=== PATIENT | male | born 1945 | race Caucasian/White ===

== ENCOUNTER → 2018-07-20 | Outpatient (CLI) | payer OTHER | END | disposition home or self-care (01) | LOC: PCVCCLINIC 15:00 | PROVIDERS: ATTEND Internal Medicine Cardiovascular Disease | DX: R06.09 Other forms of dyspnea (principal); I10 Essential (primary) hypertension; E78.00 Pure hypercholesterolemia, unspecified; I73.9 Peripheral vascular disease, unspecified; R19.8 Other specified symptoms and signs involving the digestive system and abdomen; Z98.890 Other specified postprocedural states; E78.5 Hyperlipidemia, unspecified; Z87.891 Personal history of nicotine dependence; Z79.82 Long term (current) use of aspirin | CPT/HCPCS: 93005; G0463 ==

== ENCOUNTER → 2018-08-02 | Outpatient (CLI) | payer OTHER ==
[~2018-08-02] MED LIST: REGADENOSON 0.4 MG/5 ML DISP.SYRIN. IV ONE
--- NOTE | 2018-08-02 13:07 | PCVCIMAG ---
APPROVED REPORT Doppler Spectral Velocity Analysis PSV / EDVPSV / EDV ECA (R) 105 / 0 cm/sECA (L) 103 / 0 cm/s dICA (R) 82 / 20 cm/sdICA (L) 113 / 33 cm/s Raven (R) 95 / 20 cm/smICA (L) 90 / 19 cm/s pICA (R) 122 / 24 cm/spICA (L) 70 / 13 cm/s Bulb (R) 62 / 13 cm/sBulb (L) 87 / 11 cm/s dCCA (R) 73 / 13 cm/sdCCA (L) 81 / 14 cm/s mCCA (R) 77 / 12 cm/smCCA (L) 78 / 16 cm/s Vert (R) 72 / 11 cm/sVert (L) 38 / 10 cm/s ICA/CCA 1.67ICA/CCA 1.40 Findings The right carotid bulb has moderate calcified plaque. The right proximal internal carotid artery shows 40-50% stenosis. The right common carotid artery shows no significant stenosis. The right external carotid artery shows no significant stenosis. The left carotid bulb has minimal plaque. The left proximal internal carotid artery shows no significant stenosis, changes of endarterectomy. The left common carotid artery shows no significant stenosis. The left external carotid artery shows no significant stenosis. Conclusion 1. Right internal carotid artery stenosis (40-50%). 2. Left internal carotid artery plaquing. Changes of prior carotid endarterectomy 3. Antegrade vertebral flow
--- NOTE | 2018-08-02 13:27 | PCVCIMAG ---
EXAM: AORTOILIAC DUPLEX INDICATION: Peripheral arterial disease. Previous pelvic radiation for prostate cancer. FINDINGS: AORTA: Suprarenal aorta measures maximum diameter of 2.5 cm. There is not a fusiform infrarenal aortic aneurysm. The infrarenal aorta measures maximum diameter of 2.5 cm. No aortic stenosis. RIGHT COMMON ILIAC ARTERY: Maximum diameter is 1.2 cm. Mild/moderate stenosis mid vessel. RIGHT EXTERNAL ILIAC ARTERY: No significant stenosis. LEFT COMMON ILIAC ARTERY: Maximum diameter is 1.3 cm. 80% stenosis mid common iliac artery. LEFT EXTERNAL ILIAC ARTERY: No significant stenosis. IMPRESSION: No abdominal aortic aneurysm. Mild/moderate stenosis mid right common iliac artery. 80% stenosis mid left common iliac artery. LOC:OFFICE
--- NOTE | 2018-08-02 13:31 | PCVCIMAG ---
EXAM: BILATERAL LOWER EXTREMITY ARTERIAL DUPLEX INDICATION: Peripheral Arterial Disease. Leg pain. FINDINGS: Right Leg: Satisfactory arterial waveforms throughout the common/profunda/superficial femoral, popliteal, anterior tibial, peroneal, and posterior tibial arteries. No flow limiting stenosis seen. Left Leg: Mildly blunted arterial waveforms in the common femoral artery consistent with significant left iliac stenosis. Please see aortoiliac dictation from today. The superficial femoral and popliteal arteries are patent. Anterior tibial, peroneal, and posterior tibial arteries are patent. IMPRESSION: No flow limiting stenosis in the right lower extremity. No flow limiting stenosis in the left lower extremity. Mildly blunted arterial waveforms left common femoral artery consistent with high-grade left iliac stenosis. LOC:OFFICE
--- NOTE | 2018-08-06 12:50 | PCVCIMAG ---
APPROVED REPORT Study performed: 08/02/2018 11:59:47 EXAM: Comprehensive 2D, Doppler, and color-flow Echocardiogram Patient Location: Echo lab Room #: 2Status: routine BSA: 2.39 HR: 48 bpm Rhythm: Bradycardia Other Information Study Quality: Fair Risk Factors: Cardiac Risk Factors: HTN, Hyperlipidemia Indications Dyspnea Hypertension/HDD Hx carotid endarterectomy, PAD 2D Dimensions IVSd: 7.72 (7-11mm)LVOT Diam: 30.15 (18-24mm) LVDd: 41.75 mm PWd: 8.80 (7-11mm) LVDs: 27.37 (25-40mm) Left Atrium: 36.79 (27-40mm) Aortic Root: 28.25 mm LV Single Plane 4CH: 54.02 % LV Single Plane 2CH: 58.84 % Biplane EF: 56.8 % Volumes Left Atrial Volume (Systole) Single Plane 4CH: 48.44 mLSingle Plane 2CH: 38.87 mL Biplane LA Volume: 45.00 mLLA ESV Index: 19.00 mL/m2 Aortic Valve AoV Peak Silvio.: 1.58 m/s AO Peak Gr.: 9.95 mmHgLVOT Max P.34 mmHg LVOT Max V: 0.91 m/s JOSEPH Vmax: 4.13 cm2 Mitral Valve E/A Ratio: 1.5 MV Decel. Time: 277.07 ms MV E Max Silvio.: 0.79 m/s MV A Silvio.: 0.53 m/s IVRT: 79.58 ms TDI E/Lateral E': 7.90E/Medial E': 13.17 Medial E' Silvio.: 0.06 m/s Lateral E' Silvio.: 0.10 m/s Pulmonary Valve PV Peak Silvio.: 0.96 m/sPV Peak Gr.: 3.66 mmHg Pulmonary Vein P Vein S: 0.46 m/sP Vein A: 0.29 m/s P Vein D: 0.61 m/sP Vein A Dur.: 96.9 msec P Vein S/D Ratio: 0.75 Tricuspid Valve TR Peak Silvio.: 1.90 m/s TR Peak Gr.: 14.39 mmHg TV Vmax: 0.61 m/sPA Pressure: 21.00 mmHg Left Ventricle The left ventricle is normal size. There is normal LV segmental wall motion. There is normal left ventricular wall thickness. Left ventricular systolic function is normal. The left ventricular ejection fraction is within the normal range. LVEF is 55-60%. The left ventricular diastolic function is normal. Right Ventricle The right ventricle is normal size. The right ventricular systolic function is normal. Atria The left atrium size is normal. The right atrium size is normal. Aortic Valve Aortic valve is not well visualized. Aortic valve is probably trileaflet. No aortic regurgitation is present. There is no aortic valvular stenosis. Mitral Valve The mitral valve is normal in structure. There is no mitral valve regurgitation noted. No evidence of mitral valve stenosis. Tricuspid Valve The tricuspid valve is normal in structure. There is no tricuspid valve regurgitation noted. Pulmonic Valve The pulmonary valve is normal in structure. There is no pulmonic valvular regurgitation. Great Vessels The aortic root is normal in size. Ascending aorta is not well visualized. Aortic arch is normal in caliber. IVC is normal in size and collapses >50% with inspiration. Pericardium There is no pericardial effusion. There is no pleural effusion. <Conclusion> The left ventricle is normal size. LVEF is 55-60%. The right ventricle is normal size. The left atrium size is normal. Aortic valve is not well visualized. Aortic valve is probably trileaflet. There is no aortic valvular stenosis. There is no mitral valve regurgitation noted. There is no tricuspid valve regurgitation noted. The aortic root is normal in size. There is no pericardial effusion.
--- NOTE | 2018-08-06 12:51 | PCVCIMAG ---
APPROVED REPORT Imaging Protocol: Rest Tc-99m/Stress Tc-99m 1 day Study performed: 08/02/2018 13:14:56 Indication: Dyspnea Patient Location: Out-Patient Stress Nurse: Shannan Cohen RN, Dunia Roe RN PR Tech:Geeta Guillenjose [facility] Ht: 6 ft 1 in Wt: 255 lbs BSA: 2.39 m2 HR: 57 bpm BP: 186/79 mmHg BMI: 33.6 Rhythm: Sinus Bradycardia, 1st degree AV block Medical History Medical History: HTN, Hyperlipidemia, CVD, PVD, Former Smoker Medications: Amlodipine, ASA, Klonopin, HCTZ, Atorvastatin Allergies: No known drug allergies Cardiac Risk Factors: Age Pretest Chest Pain Characteristics: No chest pain Exercise History: Sedentary Resting Data Rest SPECT myocardial perfusion imaging was performed in supine position 45 minutes following the intravenous injection of 11.2 mCi of Tc-99m Sestamibi. Time of rest injection: 1230 Date: 08/02/2018 Administration Route: IV Administration Site: Right Hand Pharmacologic Stress Pharmacologic stress test was performed by injecting Regadenoson 0.4 mg IV push over 10-15 seconds immediately followed by the intravenous injection of 32.1 mCi of Tc-99m Sestamibi. Time of stress injection: 1420 Date: 08/02/2018 Administration Route: IV Administration Site: Right Hand Gated Stress SPECT was performed 45 minutes after stress injection. The images were gated to evaluate regional wall motion and calculate left ventricular ejection fraction. Stress Test Details Stress Test: Pharmacologic stress testing performed using 0.4 mg of regadenoson per 5 mL given IV over 10 seconds. Reason for pharmacologic stress test: Claudication. HRMax Heart Rate (APMHR): 146 bpm Resting HR: 57 bpmTarget HR (85% APMHR): 124 bpm Max HR Achieved: 83 bpm % of APMHR: 56 Recovery HR: 76 bpm BP Resting BP: 186/79 mmHg Max BP: 123/56 mmHg Recovery BP: 153/69 mmHg ECG Resting ECG: Sinus Bradycardia, 1st degree AV block Stress ECG: Sinus Rhythm, 1st degree AV block Recovery ECG: Sinus Rhythm, 1st degree AV block Clinical Reason for Termination: Completed protocol Stress Symptoms: Chest pressure, Lightheaded Exercise duration: min 55 sec Symptoms resolved with caffeine. Stress ECG Conclusion ECG: Non-ischemic Study Quality Study: Good Study Data Post stress, the left ventricular ejection was 63%.. SSS: 1 SRS: 2 SDS: 0 TID = 1.08. Perfusion No evidence of stress induced ischemia or prior myocardial infarction. Wall Motion Normal left ventricular size and function with no regional wall motion abnormalities. Nuclear Conclusion No evidence of stress induced ischemia or prior myocardial infarction. Normal left ventricular size and function with no regional wall motion abnormalities. Post stress, the left ventricular ejection was 63%. No prior study available for comparison. Interpreted by: Gino Anders MD Electronically Approved: 08/02/2018 19:53:44 <Conclusion> ECG: Non-ischemic
== END | disposition home or self-care (01) ==
LOC: PCVCIMAG 09:19
PROVIDERS: ATTEND Internal Medicine Cardiovascular Disease
DX: I65.23 Occlusion and stenosis of bilateral carotid arteries (principal); I73.9 Peripheral vascular disease, unspecified; E78.5 Hyperlipidemia, unspecified; R06.09 Other forms of dyspnea; I10 Essential (primary) hypertension; R19.8 Other specified symptoms and signs involving the digestive system and abdomen; Z87.891 Personal history of nicotine dependence; Z98.890 Other specified postprocedural states
CPT/HCPCS: 78452; 93017; 93306; 93880; 93925; 93978; A9500; J2785

== ENCOUNTER → 2018-08-21 | Outpatient (CLI) | payer OTHER | END | disposition home or self-care (01) | LOC: PCVCCLINIC 10:35 | PROVIDERS: ATTEND Nuclear Medicine Nuclear Cardiology | DX: I73.9 Peripheral vascular disease, unspecified (principal); I77.9 Disorder of arteries and arterioles, unspecified; I10 Essential (primary) hypertension; E78.00 Pure hypercholesterolemia, unspecified; Z87.891 Personal history of nicotine dependence | CPT/HCPCS: G0463 ==

== ENCOUNTER → 2019-01-29 | Outpatient (CLI) | payer OTHER ==
--- NOTE | 2019-01-29 08:53 | PCVCIMAG ---
EXAM: NONINVASIVE ARTERIAL EXAMINATION OF BOTH LOWER EXTREMITIES INCLUDING PRE AND POST EXERCISE PRESSURE MEASUREMENTS AND DOPPLER WAVEFORMS INDICATION: Peripheral Arterial Disease. Leg pain. FINDINGS: Right Brachial: 167 mm Hg. Right Dorsalis Pedis: 203 mm Hg. Right Posterior Tibial: 226 mm Hg. Right ANTHONY = 1.35. Left Brachial: 153 mm Hg. Left Dorsalis Pedis: 245 mm Hg. Left Posterior Tibial: 234 mm Hg. Left ANTHONY = 1.47. Post Exercise: Right Brachial 168 mm Hg. Right Posterior Tibial: 182 mm Hg. Left Dorsalis Pedis: 206 mm Hg. Right ANTHONY = 1.08. Left ANTHONY = 1.23. IMPRESSION: No resting ischemia in the right lower extremity. No exercise induced ischemia in the right lower extremity. No resting ischemia in the left lower extremity. No exercise induced ischemia in the left lower extremity. LOC:[id number]
--- NOTE | 2019-01-29 08:54 | PCVCIMAG ---
EXAM: AORTOILIAC DUPLEX INDICATION: Peripheral arterial disease FINDINGS: AORTA: Suprarenal aorta measures maximum diameter of 8.9 cm. There is not a fusiform infrarenal aortic aneurysm. The infrarenal aorta measures maximum diameter of 1.9 cm. No aortic stenosis. RIGHT COMMON ILIAC ARTERY: Maximum diameter is 0.9 cm. No significant stenosis. RIGHT EXTERNAL ILIAC ARTERY: No significant stenosis. LEFT COMMON ILIAC ARTERY: Maximum diameter is 1.3 cm. No significant stenosis. LEFT EXTERNAL ILIAC ARTERY: No significant stenosis. IMPRESSION: No abdominal aortic aneurysm. No aortoiliac stenosis seen. Previous left iliac stent maintaining good patency. LOC:[id number]
== END | disposition home or self-care (01) ==
LOC: PCVCIMAG 08:40
PROVIDERS: ATTEND Nuclear Medicine Nuclear Cardiology
DX: I73.9 Peripheral vascular disease, unspecified (principal); E78.00 Pure hypercholesterolemia, unspecified
CPT/HCPCS: 93924; 93978